=== PATIENT | female | born 1995 | race Caucasian/White ===

== ENCOUNTER 2023-04-22 10:56 | Outpatient (CLI) | payer OTHER ==
[2023-04-22 12:21] LABS: HCT - HEMATOCRIT 32.1 % (37.0-47.0); HGB - HEMOGLOBIN 10.4 g/dL (12.0-16.0); MEAN CORPUSCULAR HEMOGLOBIN 27.4 pg (27.0-31.0); MEAN CORPUSCULAR HGB CONC 32.4 g/dL (32.0-36.0); MEAN CORPUSCULAR VOLUME 84.5 fL (81.0-99.0); MEAN PLATELET VOLUME 9.2 fL (7.9-10.8); RED BLOOD COUNT 3.8 10^6/uL (4.20-5.40); RED CELL DISTRIBUTION WIDTH 13.6 % (12.0-15.0); WHITE BLOOD COUNT 12.9 x10^3/uL (4.8-10.8)
[2023-04-22 12:27] LABS: CREATININE,URINE 50.8 mg/dL; PROTEIN/CREATININE RATIO,URINE 0.2 (<=0.2)
[2023-04-22 12:39] LABS: ALBUMIN 3.4 g/dL (3.2-5.5); ALBUMIN/GLOBULIN RATIO 1.3 (1.0-2.2); BILIRUBIN,TOTAL 0.3 mg/dL (0.2-1.0); CALCIUM 9.1 mg/dL (8.5-10.3); CREATININE 0.4 mg/dL (0.6-1.3); POTASSIUM 3.9 mmol/L (3.5-4.5)
[2023-04-22 12:55] LABS: THYROID STIMULATING HORMONE 0.68 uIU/mL (0.34-5.60)
[2023-04-22 20:54] LABS: ESTIMATED AVERAGE GLUCOSE 88 mg/dL (70-100); HEMOGLOBIN A1c% 4.7 % (4.27-6.07)
== END 2023-04-22 10:57 | disposition home or self-care (01) ==
LOC: LAB 10:56
PROVIDERS: ATTEND Obstetrics & Gynecology
DX: O09.90 Supervision of high risk pregnancy, unspecified, unspecified trimester (principal); Z87.59 Personal history of other complications of pregnancy, childbirth and the puerperium; O34.211 Maternal care for low transverse scar from previous cesarean delivery; O36.63X0 Maternal care for excessive fetal growth, third trimester, not applicable or unspecified; O99.891 Other specified diseases and conditions complicating pregnancy; R94.6 Abnormal results of thyroid function studies
CPT/HCPCS: 36415; 80053; 82570; 82950; 83036; 84156; 84443; 85027; 86787

== ENCOUNTER 2023-04-22 10:59 | Outpatient (CLI) | payer OTHER ==
--- NOTE | 2023-04-22 13:13 | Ultrasound Report ---
PROCEDURE: OB Follow up INDICATIONS: EXCESSIVE WEIGHT OUTSIDE/PRIOR DATING DATA: Last menstrual period (LMP): 08/26/2022. LMP-based estimated date of delivery (LOR): 06/02/2023. First dating scan (date and location): 04/22/2023. Estimated date of delivery (LOR) from first dating scan: 06/14/2023. TECHNIQUE: Real-time scanning was performed of the fetus, with image documentation and biometric measurements. Endovaginal scanning: Not performed. COMPARISON: None. FINDINGS: General: A single living intrauterine gestation is present. Presentation: Cephalic Placenta: Placental position is posterior, without previa. Amniotic fluid index: 15 cm, within normal limits for gestational age. heart rate: 136 beats per minute. Maternal cervical canal: 4.1 cm long; normal length is 2.5 cm or more. biometrics: Biparietal diameter: 8.5 cm, 34 weeks 3 days, 91st percentile Head circumference: 31.5 cm, 35 weeks 3 days, 87th percentile Abdominal circumference: 30.1 cm, 34 weeks 1 day, 90th percentile Femur length: 6.4 cm, 32 weeks 6 days, 51st percentile Estimated gestational age from initial scan: not applicable. Composite gestational age from present scan: 34 weeks 2 days Estimated weight and percentile: 2311 g, 85th percentile Measurement variability in biometric dating: +/- 10 days from 12-20 weeks gestation, +/- 2 weeks from 20-30 weeks gestation, +/- 3 weeks at 30 weeks gestation or more. Other: Not applicable. IMPRESSION: Single living intrauterine at 34 weeks 2 days, LOR of 06/14/2023. Estimated weight of 2311 g, 85th percentile. Reviewed by: Tevin Regalado MD on 04/22/2023 1:12 PM PST Approved by: Tevin Regalado MD on 04/22/2023 1:12 PM PST Station ID: [id number]
== END 2023-04-22 11:00 | disposition home or self-care (01) ==
LOC: DI 10:59
PROVIDERS: ATTEND Obstetrics & Gynecology
DX: O36.63X0 Maternal care for excessive fetal growth, third trimester, not applicable or unspecified (principal); Z3A.34 34 weeks gestation of pregnancy

== ENCOUNTER 2023-05-21 08:00 | Outpatient (CLI) | payer OTHER | END 2023-05-21 23:59 | disposition home or self-care (01) | LOC: LAB.WC 08:00 | PROVIDERS: ATTEND Obstetrics & Gynecology | DX: Z36.85 Encounter for antenatal screening for Streptococcus B (principal) | CPT/HCPCS: 87797 ==

== ENCOUNTER 2023-05-26 14:09 | Outpatient (CLI) | payer OTHER ==
[2023-05-26 14:44] VITALS: BP 107/70
--- NOTE | 2023-05-26 17:22 | PROCEDURE REPORT ---
- HPI Diagnosis/Indication for NST: Other (Obesity) Current EDU 06/14/23 Gestation 37 Weeks and 2 Days 3 Para 2 Vital Signs Temperature 98.8 F 05/26/23 14:38 Heart Rate 91 05/26/23 14:38 Respiratory Rate 17 05/26/23 14:38 Blood Pressure 107/70 05/26/23 14:38 Temperature 98.8 F 05/26/23 14:38 Heart Rate 91 05/26/23 14:38 Respiratory Rate 17 05/26/23 14:38 Blood Pressure 107/70 05/26/23 14:38 O2 Saturation If not protocol: Oxygen Flow, liters/minute - NST Procedure NST Procedure Start Date 05/26/23 Start Time 14:34 Stop Time 15:07 Patient States Movement Yes - Results and Plan Plan: Patient is a 28-year-old at 37 weeks gestation here for NST. NST Performed 05/26/23 NST Read 05/26/23 FHT: 135 bpm baseline, moderate variability, accelerations present, no decelerations. Reactive NST [place]: Quiescent Diagnosis 37 weeks gestation Obesity Continue with scheduled OB care
== END 2023-05-26 15:15 | disposition home or self-care (01) ==
LOC: WFO 14:09 → FBP 14:11 → WFO 15:15
PROVIDERS: ATTEND Obstetrics & Gynecology
DX: O99.213 Obesity complicating pregnancy, third trimester (principal); O09.93 Supervision of high risk pregnancy, unspecified, third trimester; Z3A.37 37 weeks gestation of pregnancy
CPT/HCPCS: 59025

== ENCOUNTER 2023-05-26 15:23 | Outpatient (CLI) | payer OTHER ==
--- NOTE | 2023-05-27 13:01 | Ultrasound Report ---
PROCEDURE: OB Follow up INDICATIONS: OBESITY, SUPERVISON HIGH RISK OUTSIDE/PRIOR DATING DATA: Last menstrual period (LMP): 08/26/2022. LMP-based estimated date of delivery (LOR): 06/02/2023. First dating scan (date and location): 04/22/2023. Estimated date of delivery (LOR) from first dating scan: 06/14/2023. The below data below was generated using the working LOR of 06/14/2023 TECHNIQUE: Ultrasound of the gravid uterus was performed and recorded. COMPARISON: None. FINDINGS: General: A single live intrauterine gestation is present. Presentation: Cephalic Placenta: Placental position is posterior without previa. Amniotic fluid index: 18.7 cm, within normal limits for gestational age. heart rate: 144 beats per minute. Maternal cervical canal: Not imaged biometrics: Biparietal diameter: 9.7 cm, 29 week 4 day, 99 percentile Head circumference: 34.8 cm, 40 week 3 day, 90 percentile Abdominal circumference: 34.7 cm, 38 week 4 day, 92 percentile Femur length: 7.4 cm 37 week 6 day, 66 percentile Estimated gestational age by working dates: 37 week 2 day Composite gestational age by current ultrasound: 39 week 1 day Estimated weight and percentile: 3598 g, 90 percentile Measurement variability in biometric dating: +/- 10 days from 12-20 weeks gestation, +/- 2 weeks from 20-30 weeks gestation, +/- 3 weeks at 30 weeks gestation or more. Other: Not applicable. IMPRESSION: Single live intrauterine consistent with 39 week 1 day gestation by current ultrasound EFW 90 percentile. KERI 18.7 similar Reviewed by: Cristino Garcia MD on 05/27/2023 12:00 PM [facility] Approved by: Cristino Garcia MD on 05/27/2023 12:00 PM GENARO Station ID: [id number]
== END 2023-05-26 15:24 | disposition home or self-care (01) ==
LOC: DI 15:23
PROVIDERS: ATTEND Obstetrics & Gynecology
DX: O99.213 Obesity complicating pregnancy, third trimester (principal); O09.93 Supervision of high risk pregnancy, unspecified, third trimester; Z3A.39 39 weeks gestation of pregnancy

== ENCOUNTER 2023-05-29 09:57 | Outpatient (CLI) | payer OTHER ==
[2023-05-29 10:11] VITALS: BP 111/72
--- NOTE | 2023-05-29 10:59 | PROCEDURE REPORT ---
- HPI Vital Signs Temperature 98.7 F 05/29/23 10:06 Heart Rate 98 05/29/23 10:06 Respiratory Rate 18 05/29/23 10:06 Blood Pressure 111/72 05/29/23 10:06 Temperature 98.7 F 05/29/23 10:06 Heart Rate 98 05/29/23 10:06 Respiratory Rate 18 05/29/23 10:06 Blood Pressure 111/72 05/29/23 10:06 O2 Saturation If not protocol: Oxygen Flow, liters/minute - Results and Plan Plan: Patient is a 28-year-old G3, P2 at 37 weeks 4 days gestation here for NST. NST Performed 05/29/2023 NST Read 05/29/2023 FHT: 135 bpm baseline, moderate variability, accelerations present, no decelerations. Reactive NST [place]: Quiescent Diagnosis 37 weeks gestation Obesity Continue with scheduled OB care
== END 2023-05-29 11:24 | disposition home or self-care (01) ==
LOC: WFO 09:57 → FBP 10:03 → WFO 11:24
PROVIDERS: ATTEND Obstetrics & Gynecology
DX: O99.213 Obesity complicating pregnancy, third trimester (principal); Z3A.37 37 weeks gestation of pregnancy
CPT/HCPCS: 59025

== ENCOUNTER 2023-06-02 14:11 | Outpatient (CLI) | payer OTHER ==
[2023-06-02 14:23] VITALS: BP 111/73; O2SAT 98
--- NOTE | 2023-06-02 16:15 | PROCEDURE REPORT ---
- HPI Current EDU 06/14/23 Gestation 38 Weeks and 2 Days 3 Para 2 Vital Signs Temperature 98.1 F 06/02/23 14:21 Heart Rate 95 06/02/23 14:21 Respiratory Rate 19 06/02/23 14:21 Blood Pressure 111/73 06/02/23 14:21 O2 Saturation 98 06/02/23 14:21 Temperature 98.1 F 06/02/23 14:58 Heart Rate 92 06/02/23 14:58 Respiratory Rate 18 06/02/23 14:58 Blood Pressure 111/73 06/02/23 14:58 O2 Saturation 98 06/02/23 14:21 If not protocol: Oxygen Flow, liters/minute - NST Procedure NST Procedure Start Date 06/02/23 Start Time 14:18 Stop Time 14:46 Vibroacoustic Stimulation Used No Patient States Movement Yes - Results and Plan Findings/Impression: Reactive for of 32 weeks gestation or more. NST tracing contains at least two heart rate accelerations that are at least 15 beats per minute above the baseline rate and lasting at least 15 seconds from onset to return to baseline within a twenty minute period. Plan: care as scheduled
== END 2023-06-02 14:52 | disposition home or self-care (01) ==
LOC: WFO 14:11 → FBP 14:13 → WFO 14:52
PROVIDERS: ATTEND Obstetrics & Gynecology
DX: O99.213 Obesity complicating pregnancy, third trimester (principal); Z3A.38 38 weeks gestation of pregnancy
CPT/HCPCS: 59025; 99214; 99215

== ENCOUNTER 2023-06-02 15:02 | Outpatient (CLI) | payer OTHER ==
--- NOTE | 2023-06-03 00:41 | Ultrasound Report ---
PROCEDURE: OB Limited INDICATIONS: OBESITY OUTSIDE/PRIOR DATING DATA: Last menstrual period (LMP): 08/26/2022. LMP-based estimated date of delivery (LOR): 06/02/2023. First dating scan (date and location): 04/22/2023. Estimated date of delivery (LOR) from first dating scan: 06/14/2023. The below data below was generated using the ultrasound LOR of 06/14/2023 TECHNIQUE: Real-time scanning was performed of the fetus, with image documentation. Endovaginal scanning: Not performed. COMPARISON: OB ultrasound 05/26/2023. FINDINGS: A single living intrauterine gestation is present. Presentation: Cephalic Placenta: Placental position is posterior. Amniotic fluid index: 14.4 cm, normal for gestational age. Largest pocket 5.2 cm. heart rate: 126 beats per minutes. Estimated gestational age from initial scan: 38 weeks 2 days. IMPRESSION: 1. [place] living intrauterine at 38 weeks 2 days based on prior dating. Cephalic positio n. 2. KERI 14.4 cm. Normal. Reviewed by: Nadeem Garnica MD on 06/03/2023 12:40 AM PDT Approved by: Nadeem Garnica MD on 06/03/2023 12:40 AM PDT Station ID: [id number]
== END 2023-06-02 15:03 | disposition home or self-care (01) ==
LOC: DI 15:02
PROVIDERS: ATTEND Obstetrics & Gynecology
DX: O99.213 Obesity complicating pregnancy, third trimester (principal); Z3A.38 38 weeks gestation of pregnancy

== ENCOUNTER 2023-06-05 09:57 | Outpatient (CLI) | payer OTHER ==
[2023-06-05 10:37] VITALS: BP 117/71
--- NOTE | 2023-06-05 11:51 | PROCEDURE REPORT ---
- HPI Current EDU 06/14/23 Gestation 38 Weeks and 5 Days 3 Para 2 Vital Signs Temperature 97.9 F 06/05/23 10:35 Heart Rate 81 06/05/23 10:35 Respiratory Rate 18 06/05/23 10:35 Blood Pressure 117/71 06/05/23 10:35 Temperature 97.9 F 06/05/23 10:35 Heart Rate 81 06/05/23 10:35 Respiratory Rate 18 06/05/23 10:35 Blood Pressure 117/71 06/05/23 10:35 O2 Saturation If not protocol: Oxygen Flow, liters/minute - NST Procedure NST Procedure Start Date 06/05/23 Start Time 10:12 Stop Time 10:41 Vibroacoustic Stimulation Used No Patient States Movement Yes - Results and Plan Plan: Patient is a 28-year-old -0-0-2 at 38 weeks 5 days gestation here for NST. NST Performed 06/05/2023 NST Read 4 19,024 FHT: 130 bpm baseline, moderate variability, accelerations present, no decelerations. Reactive NST [place]: Rare Diagnosis 38 weeks gestation point Obesity Continue with scheduled OB care
== END 2023-06-05 10:45 | disposition home or self-care (01) ==
LOC: WFO 09:57 → FBP 10:11 → WFO 10:45
PROVIDERS: ATTEND Obstetrics & Gynecology
DX: O99.213 Obesity complicating pregnancy, third trimester (principal); Z3A.38 38 weeks gestation of pregnancy
CPT/HCPCS: 59025

== ENCOUNTER 2023-06-09 05:23 | Inpatient (IN) | payer OTHER ==
[2023-06-09] MEDS: LACTATED RINGERS 1,000 ML IV SCH (06:28)
[2023-06-09] MEDS: ACETAMINOPHEN 325 MG TABLET PO ONE (06:36)
[2023-06-09 06:38] LABS: BASOPHILS % (AUTO) 0.3 %; EOSINOPHILS # (AUTO) 0.3 10^3/uL (0.0-0.7); EOSINOPHILS % (AUTO) 3.3 %; HCT - HEMATOCRIT 30.5 % (37.0-47.0); HGB - HEMOGLOBIN 9.6 g/dL (12.0-16.0); LYMPHOCYTES # (AUTO) 1.8 10^3/uL (1.5-3.5); LYMPHOCYTES % (AUTO) 17.2 %; MEAN CORPUSCULAR HEMOGLOBIN 25.9 pg (27.0-31.0); MEAN CORPUSCULAR HGB CONC 31.5 g/dL (32.0-36.0); MEAN CORPUSCULAR VOLUME 82.2 fL (81.0-99.0); MEAN PLATELET VOLUME 10.1 fL (7.9-10.8); MONOCYTES # (AUTO) 1.1 10^3/uL (0.0-1.0); MONOCYTES % (AUTO) 10.5 %; NEUTROPHILS % (AUTO) 67.9 %; PLT - PLATELET COUNT 224 10^3/uL (130-450); RED BLOOD COUNT 3.71 10^6/uL (4.20-5.40); RED CELL DISTRIBUTION WIDTH 14.7 % (12.0-15.0); WHITE BLOOD COUNT 10.3 x10^3/uL (4.8-10.8)
[2023-06-09] MEDS ORDERED: ACETAMINOPHEN 500 MG TABLET PO ONE (07:00)
[2023-06-09] MEDS ORDERED: ceFAZolin (2G) 2 GM in SODIUM CHLORIDE 0.9% MINIBAG 100 ML IV ONE (07:00)
[2023-06-09] MEDS: CITRIC ACID/SODIUM CITRATE 15 ML UDC PO ONE (07:12)
--- NOTE | 2023-06-09 07:18 | ANESTHESIA ---
Pre-Anesthesia VS, & Labs - Diagnosis repeat c section - Procedure repeat c section/ salpingectomy Vital Signs: Temp Pulse Resp BP Pulse Ox O2 Flow Rate 36.7 C 91 15 124/75 98 06/09/23 05:45 06/09/23 05:39 06/09/23 05:39 06/09/23 05:39 06/09/23 05:39 Height: 5 ft 5 in Weight (kg): 111.584 kg Body Mass Index: 40.9 BMI Classification: Morbidly Obese - NPO >8 hours Last Fluid Intake: 0330 - Is Patient ?: Yes (healthy ) - Lab Results Current Lab Results: Laboratory Tests 06/09/23 06:15: WBC 10.3, RBC 3.71 L, Hgb 9.6 L, Hct 30.5 L, MCV 82.2, MCH 25.9 L, MCHC 31.5 L, RDW 14.7, Plt Count 224, MPV 10.1, Neut # (Auto) 7.0 H, Lymph # (Auto) 1.8, [place] # (Auto) 1.1 H, Eos # (Auto) 0.3, Baso # (Auto) 0.0, Absolute Nucleated RBC 0.00, Nucleated RBC % 0.0 Fish Bones: 06/09/23 06:15 Home Medications and Allergies Active Medications Lactated Ringer's (Lr) 1,000 mls @ 125 mls/hr IV .Q8H BASIL Last Admin: 06/09/23 06:28 Dose: 125 mls/hr Cefazolin Sodium 2 gm/ Sodium (Chloride) 100 mls @ 200 mls/hr IV ONCE ONE Stop: 06/09/23 07:29 Allergies/Adverse Reactions: Allergies Allergy/AdvReac Type Severity Reaction Status Date / Time No Known Drug Allergies Allergy Verified 06/09/23 02:39 Anes History & Medical History - Anesthetic History Anesthesia Complications: reports: No previous complications Family history of Anesthesia Complications: Denies - Medical History Cardiovascular: reports: None Pulmonary: reports: None Gastrointestinal: reports: None Urinary: reports: None Musculoskeletal: reports: Other (back pain w / also carpal tunnel) Smoking Status: Never smoker Psychosocial: reports: No issues indicated - Surgical History Gynecologic: reports: section (no problem w spinal on last c/s) Exam General: Alert, Oriented x3 Dental: WNL Mouth Openin Fingerbreadth Neck Mobility: Normal Mallampati classification: II Thyromental Distance: 4-6 cm Respiratory: Lungs clear Cardiovascular: Regular rate Plan Anesthesia Type: Spinal, Transverse Abdominis Plane (TAP) Block Consent for Procedure(s) Verified and Reviewed: Yes Code Status: Attempt Resuscitation ASA classification: 2-Mild systemic disease Is this case an emergency?: No
[2023-06-09] MEDS ORDERED: MORPHINE 2 MG/ML CARPUJECT IVP PRN ×2 (07:19→09:42)
[2023-06-09] MEDS ORDERED: HYDROmorphone 0.5 MG/0.5 ML SYRINGE IVP PRN ×2 (07:19→09:42)
[2023-06-09] MEDS ORDERED: fentaNYL 100 MCG/2 ML VIAL IVP PRN ×2 (07:19→09:42)
[2023-06-09] MEDS ORDERED: ATROPINE ABBOJECT 1 MG/10 ML SYRINGE IVP PRN ×2 (07:19→09:42)
[2023-06-09] MEDS ORDERED: NALOXONE 0.4 MG/ML VIAL IVP PRN ×4 (07:19→10:37)
[2023-06-09] MEDS ORDERED: ONDANSETRON 4 MG/2 ML VIAL IVP PRN ×4 (07:19→10:37)
[2023-06-09] MEDS ORDERED: ePHEDrine 50 MG/ML VIAL IVP PRN ×3 (07:19→10:37)
[2023-06-09] MEDS ORDERED: METOCLOPRAMIDE 10 MG/2 ML VIAL IVP PRN ×3 (07:19→10:37)
[2023-06-09] MEDS ORDERED: miSOPROStoL 200 MCG TABLET ONE (07:25)
[2023-06-09] MEDS ORDERED: METHYLERGONOVINE 0.2 MG/ML VIAL ONE (07:26)
[2023-06-09] MEDS ORDERED: CARBOPROST TROMETHAMINE 250 MCG/ML VIAL IM ONE (07:26)
[2023-06-09] MEDS ORDERED: PHENYLEPHRINE HCL 0.5 MG/5 ML AMPULE ONE ×2 (07:28→08:49)
[2023-06-09] MEDS ORDERED: OXYTOCIN 10 UNIT/ML VIAL ONE (07:29)
[2023-06-09] MEDS ORDERED: MORPHINE PF 5 MG/10 ML VIAL ONE (07:29)
[2023-06-09] MEDS ORDERED: fentaNYL 100 MCG/2 ML VIAL ONE (07:29)
[2023-06-09] MEDS ORDERED: LACTATED RINGERS 1,000 ML IV SCH ×2 (08:00→09:42)
[2023-06-09] MEDS ORDERED: MORPHINE PF 5 MG/10 ML VIAL IT ONE (08:00)
[2023-06-09] MEDS ORDERED: fentaNYL 100 MCG/2 ML VIAL IT ONE (08:00)
[2023-06-09] MEDS ORDERED: ONDANSETRON 4 MG/2 ML VIAL ONE (08:07)
[2023-06-09] MEDS ORDERED: SODIUM CHLORIDE 0.9% 10 ML VIAL IVP ONE (08:36)
[2023-06-09] MEDS ORDERED: ROPIVACAINE 0.5% PF 20 ML VIAL ONE (08:37)
[2023-06-09] MEDS ORDERED: KETOROLAC 30 MG/ML VIAL ONE (09:51)
[2023-06-09] MEDS ORDERED: NIFEdipine 10 MG CAPSULE PO PRN (10:03)
[2023-06-09] MEDS ORDERED: diphenhydrAMINE 25 MG CAPSULE PO PRN (10:03)
[2023-06-09] MEDS ORDERED: LABETALOL 20 MG/4 ML SYRINGE IVP PRN ×3 (10:03)
[2023-06-09] MEDS ORDERED: OXYTOCIN/SODIUM CHLORIDE 500 ML IV PRN (10:03)
[2023-06-09] MEDS ORDERED: oxyCODONE 5 MG TABLET PO PRN (10:03)
[2023-06-09] MEDS ORDERED: CALCIUM CARBONATE CHEW 500 MG TABLET PO PRN (10:03)
[2023-06-09] MEDS ORDERED: SIMETHICONE CHEW 80 MG TABLET PO PRN (10:03)
[2023-06-09] MEDS ORDERED: diphenhydrAMINE INJ 50 MG/ML VIAL IVP PRN ×2 (10:03→10:37)
[2023-06-09] MEDS ORDERED: FERRIC GLUCONATE 125 MG in SODIUM CHLORIDE 0.9% 100ML 100 ML IV PRN (10:03)
[2023-06-09] MEDS ORDERED: hydrALAZINE INJ 20 MG/ML VIAL IVP PRN ×2 (10:03)
--- NOTE | 2023-06-09 10:09 | OPERATIVE REPORT ---
Operative Report - General Admit Date: 06/09/23 Planned Procedure: repeat c section with bilateral salpingectomies Pre-Op Diagnosis: term , prior c section, undesired future fertility Procedure Performed: repeat low transverse c section with extensive adhesiolysis. remove of all of right tube, portion of left tube. Post Op Diagnosis: as above with extensive adhesions. - Procedure Note Primary Surgeon: Lady Billings MD Secondary Surgeon: Robin Odonnell MD and MYRANDA Pozo Anesthesia Provider: Dakota Gil Anesthesia Technique: Regional block (TAP block), Spinal Pathology: fallopian tubes to pathology IV Fluids (mL): 1,500 Estimated Blood Loss (mL): 1,200 Urine Output (mL): 100 Indications: repeat c section at term and desired sterilization. Findings: significant adhesions from the uterus to the anterior abdominal wall. Complications: none - Other Other Information/Narrative: Procedure Details The risks, benefits, complications, treatment options, and expected outcomes were discussed with the patient. The patient concurred with the proposed plan, giving informed consent. The patient was taken to the Operating Room. 2 grams of Cefazolin were given. She had sequential compression devices on her lower extremities. Cox catheter was placed. A Time Out was held and the above information confirmed. The patient was prepped in the usual sterile manner, including vaginal prep. Drapes were placed. Anesthesia was tested and found to be adequate. A Pfannenstiel incision was made and carried down through the subcutaneous tissue to the fascia. Fascial incision was made and extended transversely. The fascia was difficult to separate from the underlying rectus tissues as it was extensively stuck down. The peritoneum was identified and entered, but in the process of doing this, I cut into the upper part of the uterus. It was very adhesed. Peritoneal incision was stretched best we could. The Lopez retractor was placed and rolled down. The uterus was palpated to examine lie. A low transverse uterine incision was made. The incision was stretched manually. Bag of water was entered during the process and fluid was clear. The baby's head was elevated through the incision. A forceps blade was placed under the baby's head to gently guide him out. He was quite large. The baby was delivered and brought up towards her chest to show mom. Baby was dried and stimulated. I waited for 1 minute to clamp the cord. After the umbilical cord was clamped and cut, cord blood was obtained for evaluation. The placenta was removed intact using gentle traction and appeared normal. The uterine outline, tubes and ovaries appeared normal. The uterine incision was closed with running locked sutures of 0 Monocryl suture. A second horizontal imbricating layer was placed with the same suture. Hemostasis was observed. The upper part of the uterus was bleeding from where the fascial adhesions were removed on entry and this was repaired with a figure of 8 stitch of 0 Monocryl. The fallopian tubes were behind dense adhesions from the anterior abdominal wall to the uterus. I was able to get around this laterally on the right and identify the fimbriated end of the tube. This was sealed and cut off using the small LigaSure device. I was able to remove most of the tube but there was about 2 cm at the cornua that remained due to adhesions. On the left side, the tube was not at all visible. We did adhesiolysis to try to find it and eventually found the fimbria. This was sealed and transected as far up the tube as was visible. I removed about 4 cm of it but could not see or reach any more safely. The tubes were sent for pathology. Further adhesiolysis was done to allow the uterus to be free from the anterior abdominal wall. The anterior uterus had raw surfaces that were oversewn with 0 Monocryl. Surgicell was placed in areas that were oozing. When this repair was done a piece of Septrafilm was placed to try and prevent new adhesions from forming. The Lopez retractor was removed. Rectus muscles were examined carefully for bleeding. The peritoneum and muscles were brought together and closed with 2-0 Vicryl suture to put a layer over the uterus. The fascia was then reapproximated with running sutures of 0 Vicryl. The subcutaneous tissue was brought together with 3.0 Vicryl suture and the skin was closed with 4.0 Monocryl in subcuticular fascia. Wide steri strip was placed over the wound. Bandage was placed. Uterus was expressed. Fundus was firm. Patient was then brought to the PACU in stable condition. Instrument, sponge, and needle counts were correct prior the abdominal closure and at the conclusion of the case. My assistants were scrubbed and present during the entire procedure and assisted with visualization, hemostasis, fundal pressure for infant delivery, and closure. This was a very difficult case, requiring the help of 2 skilled assistants. The procedure took double the time of a normal c section at 90 minutes.
[2023-06-09] MEDS: LACTATED RINGERS 300 ML IV ONE (10:16)
[2023-06-09] MEDS ORDERED: NALBUPHINE 10 MG/ML AMP IVP PRN (10:37)
[2023-06-09] MEDS: LACTATED RINGERS 1,000 ML IV ONE (11:00)
[2023-06-09] MEDS: ACETAMINOPHEN 500 MG TABLET PO SCH (11:58)
--- NOTE | 2023-06-09 13:33 | ANESTHESIA POST OP EVALUATION ---
Anesthesia Post Eval - Post Anesthesia Eval Vitals: Last Vital Signs Temp 36.7 C 06/09/23 12:45 Pulse 77 06/09/23 12:45 Resp 16 06/09/23 12:45 BP 96/55 L 06/09/23 12:45 Pulse Ox 99 06/09/23 12:45 O2 Flow Rate CV Function Including HR & BP: Stable Pain Control: Satisfactory Nausea & Vomiting: Negative Mental Status: Baseline Respiratory Status: Airway Patent Hydration Status: Satisfactory Anesthesia Complications: None
[2023-06-09] MEDS: KETOROLAC 30 MG/ML VIAL IVP SCH (15:05)
[2023-06-09] MEDS: FERRIC GLUCONATE 125 MG in SODIUM CHLORIDE 0.9% 100ML 100 ML IV ONE (17:20)
[2023-06-09] MEDS: DOCUSATE SODIUM 100 MG CAPSULE PO SCH (20:36)
[2023-06-10 06:01] LABS: HCT - HEMATOCRIT 29.3 % (37.0-47.0); HGB - HEMOGLOBIN 9.1 g/dL (12.0-16.0); MEAN CORPUSCULAR HGB CONC 31.1 g/dL (32.0-36.0); MEAN CORPUSCULAR VOLUME 83.7 fL (81.0-99.0); MEAN PLATELET VOLUME 9.7 fL (7.9-10.8); RED BLOOD COUNT 3.5 10^6/uL (4.20-5.40); RED CELL DISTRIBUTION WIDTH 14.6 % (12.0-15.0); WHITE BLOOD COUNT 12.5 x10^3/uL (4.8-10.8)
[2023-06-10] MEDS: IBUPROFEN 600 MG TABLET PO SCH (11:38)
[2023-06-10 14:23] VITALS: BP 122/68; O2SAT 99
--- NOTE | 2023-06-10 20:31 | HISTORY & PHYSICAL EXAMINATION ---
HPI - Admitted From Admitted from: OB - History Obtained From History obtained from: Patient - History of Present Illness Pain/Problem Location Description: term here for repeat c section and sterilization. PMH/PSH - Past Medical History Cardiovascular: positive: None Respiratory: positive: None GI: positive: None : positive: None Musculoskeletal: positive: Other (back pain w / also carpal tunnel) - Past Surgical History /[employer]UD[employer]: positive: section (no problem w spinal on last c/s) Social & Family Hx - Social History Smoking Status: Never smoker Meds/Allgy - Home Medications Home Medications: Ambulatory Orders Medication Instructions Recorded Confirmed Docusate Sodium 100Mg Capsule 100 - 200 mg PO BID PRN #60 cap 06/10/23 [Colace 100Mg Capsule] Ferrous Sulfate 325 mg PO DAILY #60 tab 06/10/23 Ibuprofen [Motrin] 600 mg PO Q6H PRN #30 tab 06/10/23 - Allergies Allergies/Adverse Reactions: Allergies Allergy/AdvReac Type Severity Reaction Status Date / Time No Known Drug Allergies Allergy Verified 06/09/23 02:39 Review of Systems - Constitutional Constitutional: reports: Fatigue - Cardiovascular Cariovascular: denies: Irregular heart rate, Chest pain - Respiratory Respiratory: denies: SOB at rest - Gastrointestinal Gastrointestinal: denies: Abdominal pain Exam - Vital Signs Reviewed Vital Signs: Yes Vital Signs: Vital Signs x48h Temp Pulse Resp BP Pulse Ox 06/10/23 14:21 98.1 F 112 H 14 122/68 99 - Physical Exam General Appearance: positive: No acute distress Respiratory: positive: No respiratory distress Cardiovascular: positive: Regular rate & rhythm Abdomen: positive: Non-tender Results - Lab Results Fish Bones: 06/10/23 05:56 Other Lab Results: Lab Results x24hrs 06/10/23 Range/Units 05:56 WBC 12.5 H (4.8-10.8) x10^3/uL RBC 3.50 L (4.20-5.40) 10^6/uL Hgb 9.1 L (12.0-16.0) g/dL Hct 29.3 L (37.0-47.0) % MCV 83.7 (81.0-99.0) fL MCH 26.0 L (27.0-31.0) pg MCHC 31.1 L (32.0-36.0) g/dL RDW 14.6 (12.0-15.0) % Plt Count 190 (130-450) 10^3/uL MPV 9.7 (7.9-10.8) fL Impression/Plan - Problem List Problem List: term with 2 prior c sections here for repeat c section. H&P done in office last week. no changed. still wishes sterilization. papers signed.
--- NOTE | 2023-06-10 20:34 | DISCHARGE SUMMARY ---
"Discharge Summary Admit Date: 06/09/23 Discharge Date: 06/10/23 Discharging Provider: Lady Billings MD Code Status: Attempt Resuscitation Condition at Discharge: Good - DIAGNOSES Admission Diagnoses: term delivered, desires sterilization. prior c section x 2 Discharge Diagnoses with Status of Each Condition: term delivered. sterilization performed anemia of - stable significant intrabdominal adhesions. - HPI History of Present Illness: prior c section x 2 here for repeat. otherwise uncomplicated. - CONSULTS | PROCEDURES Procedures: repeat c section and tubal sterilization. - HOSPITAL COURSE Hospital Course: Patient was admitted and c section was performed. Very difficult as significant pelvis adhesions. tubal sterilization done but unable to remove the entire tube on the left. most of the tube was removed. patient did great and was ready for discharge on post op day one. She was not taking any narcotics. - ALLERGIES Allergies/Adverse Reactions: Allergies Allergy/AdvReac Type Severity Reaction Status Date / Time No Known Drug Allergies Allergy Verified 06/09/23 02:39 - MEDICATIONS Home Medications: Ambulatory Orders Medication Instructions Recorded Confirmed Docusate Sodium 100Mg Capsule 100 - 200 mg PO BID PRN #60 cap 06/10/23 [Colace 100Mg Capsule] Ferrous Sulfate 325 mg PO DAILY #60 tab 06/10/23 Ibuprofen [Motrin] 600 mg PO Q6H PRN #30 tab 06/10/23 - PHYSICAL EXAM AT DISCHARGE General Appearance: positive: No acute distress Respiratory: positive: No respiratory distress Cardiovascular: positive: Regular rate & rhythm Abdomen: positive: Non-tender, Other (steristrips with some blood, replaced. wound healing well. ) - LABS Result Diagrams: 06/10/23 05:56 - FOLLOW UP Follow Up: 1 week - TIME SPENT Time Spent in Discharge (Minutes): 20"
== END 2023-06-10 15:00 | disposition home or self-care (01) | DRG 785 ==
LOC: FBP 05:23
PROVIDERS: ADMIT Obstetrics & Gynecology; ATTEND Obstetrics & Gynecology
PROC: 0UB70ZZ Excision of Bilateral Fallopian Tubes, Open Approach (ICD-10-PCS; 2023-06-09)
PROC: 10D00Z1 Extraction of Products of Conception, Low, Open Approach (ICD-10-PCS; principal; 2023-06-09 07:30)
DX: O34.211 Maternal care for low transverse scar from previous cesarean delivery (principal); O99.02 Anemia complicating childbirth; O99.892 Other specified diseases and conditions complicating childbirth; N73.6 Female pelvic peritoneal adhesions (postinfective); Z3A.39 39 weeks gestation of pregnancy; Z30.2 Encounter for sterilization; Z37.0 Single live birth; Z79.899 Other long term (current) drug therapy
CPT/HCPCS: 36415; 85025; 85027; 86850; 86900; 86901; A9270; J2274; J2372; J2795; J2916; J7120